=== PATIENT | male | born 1995 | race Caucasian/White ===

== ENCOUNTER 2024-02-14 03:11 | Outpatient (CLI) | payer BC, SELFPAY ==
[2024-02-14 08:04] LABS: HCT 45.6 % (40.0-50.0); MCH 28.4 pg (27.0-33.0); MCHC 32.9 % (32.0-36.0); MCV 86 fL (80-95); MPV 11.6 fL (8.0-11.0); Platelet Count 274 10^3/uL (130-400); RBC 5.28 10^6/uL (4.36-5.78); RDW-SD 40.7 fL; WBC 5.65 10^3/uL (4.4-10.8)
[2024-02-14 08:41] LABS: Calculated LDL 96 mg/dL (<100); Cholesterol 156 mg/dL (<200); HDL Cholesterol 51 mg/dL (40-60); TSH (W/Ref FT4) 2.46 uIU/mL (0.36-3.74); Triglyceride 47 mg/dL (<150)
[2024-02-14 09:03] LABS: Glucose 90 mg/dL (74-106)
== END 2024-02-14 03:12 | disposition home or self-care (01) ==
PROVIDERS: Absent Provider Nurse Practitioner Family; PCP Nurse Practitioner Family; Referring Provider Nurse Practitioner Family; Visit Provider Nurse Practitioner Family
DX: F41.9 Anxiety disorder, unspecified (principal); Z00.00 Encounter for general adult medical examination without abnormal findings
CPT/HCPCS: 36415; 80061; 82947; 85027; 84443

== ENCOUNTER 2024-08-17 15:34 | Outpatient (CLI) | payer OTHER, SELFPAY ==
--- NOTE | 2024-08-17 15:30 | RT.EKG_ITS ---
APPROVED REPORT Exam: Resting ECG Reason for Exam: see above Patient Location: O HR:81 bpm ECG Measurements Heart Rate 81 AXIS WI 144 P 71 QRSd 104 QRS 76 QT 368 T 51 QTc 428 Conclusion Sinus rhythm...normal P axis, V-rate 50- 99 Left atrial enlargement...P, P'>60mS, <-0.15mV V1 \ Otherwise normal ECG
== END 2024-08-17 15:35 | disposition home or self-care (01) ==
LOC: DI.KIM 15:35
PROVIDERS: PCP Nurse Practitioner Family; Visit Provider Nurse Practitioner Family
DX: R00.2 Palpitations (principal)
CPT/HCPCS: 93010

== ENCOUNTER 2024-08-24 08:24 | Outpatient (RCR) | payer OTHER, SELFPAY | END 2024-08-25 23:59 | disposition home or self-care (01) | LOC: CARDOPNVT 08:24 | PROVIDERS: PCP Nurse Practitioner Family; Visit Provider Internal Medicine Cardiovascular Disease | DX: R00.2 Palpitations (principal) | CPT/HCPCS: 93225 ==

== ENCOUNTER 2024-08-26 14:16 | Outpatient (RCR) | payer OTHER, SELFPAY ==
--- NOTE | 2024-08-31 08:16 | W.HOLTRPT ---
Date of service: 08/31/24 Time of Service: 08:16 Holter Monitor Report Referring Provider:: Florence Fabian Indications:: Palpitations Holter Monitor Note: This is a 48-hour Holter monitor. Rhythm throughout was sinus with an average heart rate of 73. Minimum was 42, maximum 121. There were very rare isolated atrial premature beats. There was no atrial fibrillation, no high-grade AV block, no pauses greater than 3 seconds. No symptoms were reported
== END 2024-09-24 23:59 | disposition home or self-care (01) ==
LOC: CARDOPNVT 14:16
PROVIDERS: PCP Nurse Practitioner Family; Visit Provider Nurse Practitioner Family
DX: R00.0 Tachycardia, unspecified (principal)
CPT/HCPCS: 93226

== ENCOUNTER 2025-02-12 09:11 | Outpatient (CLI) | payer OTHER, SELFPAY ==
[2025-02-12 09:52] LABS: Glucose 89 mg/dL (74-106)
[2025-02-12 15:47] LABS: TSH (W/Ref FT4) 1.39 uIU/mL (0.55-4.78)
[2025-02-12 15:49] LABS: Cholesterol 178 mg/dL (<200); HDL Cholesterol 52 mg/dL (>40)
== END 2025-02-12 09:12 | disposition home or self-care (01) ==
LOC: LBO 09:11
PROVIDERS: PCP Nurse Practitioner Family; Visit Provider Nurse Practitioner Family
DX: Z00.00 Encounter for general adult medical examination without abnormal findings (principal); Z83.49 Family history of other endocrine, nutritional and metabolic diseases
CPT/HCPCS: 36415; 80061; 82947; 84443